=== PATIENT | female | born 2005 | race Caucasian/White ===

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

== ENCOUNTER 2025-08-12 06:56 | Outpatient (CLI) | payer BC, SELFPAY ==
--- NOTE | ~2025-08-12 | MR_ITS ---
EXAMINATION: MR shoulder RT wo con DATE: 08/12/2025 07:25 INDICATION: Rotator cuff tendinitis TECHNIQUE: Magnetic resonance imaging (MRI) of the right shoulder was performed without intravenous contrast. Sequences included axial PD-weighted FS FSE, coronal oblique PD-weighted FS FSE, coronal oblique T2-weighted FS FSE, sagittal PD-weighted FS FSE, and sagittal T1-weighted SE. COMPARISON: None. FINDINGS: Coracoacromial arch: The acromion undersurface is curved in morphology (type II). The coracoacromial ligament is normal. Acromioclavicular joint is normal. Rotator cuff: The supraspinatus, infraspinatus and teres minor tendons are normal. The subscapularis tendon is normal. Normal rotator cuff muscle bulk and signal. Biceps tendon, glenoid labrum and glenohumeral cartilage: Long head of the biceps tendon is normal. Glenoid labrum is normal with normal anterosuperior some labral foramen. Glenohumeral cartilage is normal. Fluid: Physiologic amount of fluid in the glenohumeral joint and biceps tendon sheath. No loose osteochondral bodies. Small amount of fluid in the subacromial/subdeltoid bursa consistent with mild bursitis. Bones: Normal marrow signal with no edema, fracture or abnormal marrow replacing process. IMPRESSION: 1. Mild subacromial/subdeltoid bursitis. Otherwise normal right shoulder MRI. Reviewed, dictated and finalized at location A.
== END 2025-08-12 06:57 | disposition home or self-care (01) ==
PROVIDERS: PCP Pediatrics
DX: M75.81 Other shoulder lesions, right shoulder (principal); M25.811 Other specified joint disorders, right shoulder; M75.51 Bursitis of right shoulder
CPT/HCPCS: 73221